=== PATIENT | female | born 1985 | race Caucasian/White ===

== ENCOUNTER → 2020-06-21 | Outpatient (CLI) | payer OTHER ==
--- NOTE | 2020-06-21 11:38 | Diagnostic Imaging Report ---
PROCEDURE: MRI lumbar spine. TECHNIQUE: Multiplanar, multisequence MRI of the lumbar spine was performed without contrast. INDICATION: Low back pain. COMPARISON: None. FINDINGS: There are five lumbar-type vertebral bodies for the purposes of this report. Normal alignment. Vertebral body heights preserved. At L5-S1, there are Modic type I degenerative endplate changes with disc space height loss. Small left foraminal disc protrusion contributes to moderate left neuroforaminal narrowing. No substantial lateral recess or spinal canal narrowing. The intervertebral discs are otherwise well-preserved. No other neural impingement. No abnormal signal in the conus which terminates at L1. Normal morphology of the cauda equina. The visualized pelvis and paravertebral soft tissues are unremarkable. IMPRESSION: Disc degeneration at L5-S1 including Modic type I degenerative endplate changes and a small left foraminal disc protrusion. This results in moderate left neuroforaminal narrowing. No other spondylotic change or neural impingement. Dictated by: Dictated on workstation # [id number]
== END ==
LOC: RAD 09:01
PROVIDERS: ATTEND Family Medicine
DX: M51.27 Other intervertebral disc displacement, lumbosacral region (principal); M51.37 Other intervertebral disc degeneration, lumbosacral region; M48.07 Spinal stenosis, lumbosacral region
CPT/HCPCS: 72148

== ENCOUNTER → 2020-08-20 | Outpatient (CLI) | payer OTHER ==
--- NOTE | 2020-08-20 16:21 | Diagnostic Imaging Report ---
INDICATION: Abdominal and bilateral flank pain. COMPARISON: None available. FINDINGS: Nonobstructive bowel gas pattern. There are no mineralized foci overlying the renal fossa or along the course of the expected ureters. A moderate amount of colonic stool is present. Calcified granulomas are present in the lung bases. Normal regional skeleton. IMPRESSION: 1. No radiographically apparent urinary tract calculi. 2. Moderate volume of colonic stool. 3. Old granulomatous infection. Dictated by: Dictated on workstation # [id number]
== END ==
LOC: RAD FS 10:55
PROVIDERS: ATTEND Nurse Practitioner Family
DX: K56.41 Fecal impaction (principal); R10.84 Generalized abdominal pain; L92.9 Granulomatous disorder of the skin and subcutaneous tissue, unspecified
CPT/HCPCS: 74019

== ENCOUNTER → 2021-12-27 | Outpatient (CLI) | payer OTHER | LOC: LABNPT 15:53 | PROVIDERS: ATTEND Registered Nurse Emergency | DX: J06.9 Acute upper respiratory infection, unspecified (principal) | CPT/HCPCS: 87070 ==

== ENCOUNTER → 2022-02-10 | Outpatient (CLI) | payer OTHER ==
[2022-02-10 08:18] LABS: POTASSIUM 3.6 MMOL/L (3.6-5.0)
[2022-02-10 08:19] LABS: ALBUMIN 4.4 GM/DL (3.2-4.5); BILIRUBIN,TOTAL 0.4 MG/DL (0.1-1.0); CALCIUM 9.3 MG/DL (8.5-10.1); CREATININE SERUM 0.75 MG/DL (0.60-1.30); TOTAL PROTEIN 6.7 GM/DL (6.4-8.2)
== END ==
LOC: LAB FS 07:37
PROVIDERS: ATTEND Registered Nurse Emergency
DX: Z00.00 Encounter for general adult medical examination without abnormal findings (principal); R81 Glycosuria; M48.061 Spinal stenosis, lumbar region without neurogenic claudication; N92.5 Other specified irregular menstruation
CPT/HCPCS: 36415; 80053; 80061

== ENCOUNTER 2022-03-27 05:31 | Outpatient (CLI) | payer OTHER ==
[~2022-03-27] VITALS: Ht 154.9 cm; Wt 47.0 kg
[2022-03-27] MEDS ORDERED: MELO15TA39 PO (15:31)
== END 2022-03-27 15:45 | disposition home or self-care (01) ==
LOC: PREOP 05:31
PROVIDERS: ATTEND Podiatrist Foot & Ankle Surgery
DX: Z01.818 Encounter for other preprocedural examination (principal)

== ENCOUNTER 2022-04-05 17:06 | Emergency (ER) | payer OTHER ==
[~2022-04-05] VITALS: Ht 170 cm; Wt 51.5 kg
[~2022-04-05 17:06] MED LIST changes: -PROM25TA14 PO
--- NOTE | 2022-04-05 17:28 | ED General ---
General Stated Complaint: THROAT AND EAR PAIN/LEG SWELLING/DISCOLORATION Source of Information: Patient, Old Records (lab ordered from clinic) History of Present Illness Date Seen by Provider: Apr 05, 2022 Time Seen by Provider: 17:27 Initial Comments 36-year-old female presenting with complaints of fever since Sunday, March 31, throat and ear pain, cough, leg swelling since yesterday, erythematous diffuse rash since yesterday. She had outpatient labs and chest x-ray ordered by Dr. Bowman's office. They had ordered a CT scan of her abdomen and pelvis to look for additional source of her symptoms. However this was not prior authorized with her insurance, [employer]. Since she was still having symptoms and concerned about the swelling and rash with fever and sore throat and ear pain she checked into the emergency department to be evaluated. She states that she was having trouble sleeping in the last few nights because of burning pain in her throat and ears. Sunday she had been seen in the clinic and they did a COVID and flu test which were both negative per patient. She was given a liter of normal saline for hydration on Sunday as well. Timing/Duration: 4-5 Days Severity: Moderate Associated Systoms: No Chest Pain; Cough; No Diaphoresis; Fever/Chills, Headaches, Loss of Appetite, Malaise; No Nausea/Vomiting; Rash; No Seizure; Shortness of Air; No Syncope; Weakness Allergies and Home Medications Allergies Coded Allergies: ciprofloxacin (Verified Allergy, Unknown, CRAMPS, DIARREHA, 03/27/22) sulfamethoxazole (Verified Allergy, Unknown, MOUTH SORES, 03/27/22) trimethoprim (Verified Allergy, Unknown, MOUTH SORES, 03/27/22) Patient Home Medication List Home Medication List Reviewed: Yes Meloxicam (Meloxicam) Unknown Strength Tablet, Unknown Dose PO, (Reported) Entered as Reported by: MANN EDWARDS on 03/27/22 153 Promethazine HCl (Promethazine Tablet) 25 Mg Tablet, 25 MG PO Q8H PRN for nausea/throat burning Prescribed by: ALYSSIA DURANT on 04/05/221937 Review of Systems Review of Systems Constitutional: see HPI EENTM: ear pain (Burning sensation in bilateral ears), nose congestion, throat pain (Burning sensation in her throat); No ear discharge Respiratory: see HPI, cough Cardiovascular: see HPI Gastrointestinal: No nausea, No vomiting Genitourinary: No dysuria Musculoskeletal: see HPI (Generalized muscle pain and body aches) Skin: rash (Diffuse erythematous maculopapular rash.) Psychiatric/Neurological: Headache Past Lsnijte-Guqzsh-Qsavac Hx Patient Social History Tobacco Use?: No Use of E-Cig and/or Vaping dev: No Substance use?: No Alcohol Use?: No Seasonal Allergies Seasonal Allergies: No Past Medical History Surgeries: Yes (WISDOM TEETH, LEFT INDEX FINGER, C/S X3 TUBAL LIG) Respiratory: No Cardiac: No 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 oz. kg; 19.58 BMI Method: General Appearance: Mild Distress, Thin Eyes: Right Eye Other (Lateral subconjunctival hemorrhage to the right eye) HEENT: PERRL/EOMI, TMs Normal (TMs clear bilaterally with effusion present. No significant erythema or dullness is appreciated), Pharynx Normal, Moist Mucous Membranes Neck: Full Range of Motion, Normal Inspection, Non Tender, Supple Respiratory: Chest Non Tender, Lungs Clear, Normal Breath Sounds, No Accessory Muscle Use, No Respiratory Distress Cardiovascular: Normal Peripheral Pulses, Tachycardia Gastrointestinal: Normal Bowel Sounds, No Pulsatile Mass, Non Tender (No tenderness palpation but reports it feels "full" or bloated in her abdomen when palpated), Soft; No Distended, No Guarding, No Rebound, No Tenderness Rectal: Deferred Extremity: Normal Capillary Refill, Normal Range of Motion, Pedal Edema (Bilateral 1+ nonpitting edema to above her knees.) Neurologic/Psychiatric: Alert, Oriented x3, 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 Norm as Tested Skin: Warm/Dry, Rash (Diffuse erythematous maculopapular rash) Focused Exam Lactate Level 04/05/22 17:20: Lactic Acid Level 1.37 Lactic Acid Level Laboratory Tests Test 04/05/22 17:20 Lactic Acid Level 1.37 MMOL/L (0.50-2.00) Progress/Results/Core Measures Suspected Sepsis SIRS Temperature: Pulse: Respiratory Rate: Laboratory Tests 04/05/22 17:20: White Blood Count 18.1H Blood Pressure / Mean: 04/05/22 17:20: Lactic Acid Level 1.37 Laboratory Tests 04/05/22 17:20: Platelet Count 159 Results/Orders Lab Results Laboratory Tests Test 04/05/22 17:20 Range/Units White Blood Count 18.1 H 4.3-11.0 10^3/uL Red Blood Count 3.95 3.80-5.11 10^6/uL Hemoglobin 12.0 11.5-16.0 g/dL Hematocrit 34 L 35-52 % Mean Corpuscular Volume 86 80-99 fL Mean Corpuscular Hemoglobin 30 25-34 pg Mean Corpuscular Hemoglobin Concent 35 32-36 g/dL Red Cell Distribution Width 13.2 10.0-14.5 % Platelet Count 159 130-400 10^3/uL Mean Platelet Volume 10.2 9.0-12.2 fL Immature Granulocyte % (Auto) 1 % Neutrophils (%) (Auto) 75 42-75 % Lymphocytes (%) (Auto) 14 12-44 % Monocytes (%) (Auto) 8 0-12 % Eosinophils (%) (Auto) 2 0-10 % Basophils (%) (Auto) 0 0-10 % Neutrophils # (Auto) 13.6 H 1.8-7.8 10^3/uL Lymphocytes # (Auto) 2.5 1.0-4.0 10^3/uL Monocytes # (Auto) 1.4 H 0.0-1.0 10^3/uL Eosinophils # (Auto) 0.3 0.0-0.3 10^3/uL Basophils # (Auto) 0.1 0.0-0.1 10^3/uL Immature Granulocyte # (Auto) 0.2 H 0.0-0.1 10^3/uL Neutrophils % (Manual) 62 % Lymphocytes % (Manual) 9 % Monocytes % (Manual) 13 % Eosinophils % (Manual) 5 % Basophils % (Manual) 0 % Band Neutrophils 5 % Atypical Lymphocytes 6 % Lactic Acid Level 1.37 0.50-2.00 MMOL/L Pro-B-Type Natriuretic Peptide 3723.0 H <125.0 PG/ML Monoscreen NEGATIVE NEGATIVE Influenza Type A (RT-PCR) Not Detected Not Detecte Influenza Type B (RT-PCR) Not Detected Not Detecte SARS-CoV-2 RNA (RT-PCR) Not Detected Not Detecte Group A Streptococcus Screen NEGATIVE NEGATIVE My Orders Orders - ALYSSIA DURANT MD Cbc With Automated Diff (04/05/22 17:21) Blood Culture (04/05/22 17:21) Lactic Acid Analyzer (04/05/22 17:21) Ed Iv/Invasive Line Start (04/05/22 17:21) Probnp Fs (04/05/22 17:21) Covid 19 Inhouse Test (04/05/22 17:21) Rapid Strep A Screen (04/05/22 17:21) Influenza A And B By Pcr (04/05/22 17:21) Isolation Central Supply Req (04/05/22 17:21) Ekg Tracing (04/05/22 17:51) Ns Iv 1000 Ml (Sodium Chloride 0.9%) (04/05/22 17:51) Dexamethasone Injection (Decadron Inje (04/05/22 17:51) Ceftriaxone 1 Gm Pre-Mix (Rocephin 1 Gm (04/05/22 17:51) Manual Differential (04/05/22 17:20) Monotest (04/05/22 18:49) Promethazine Tablet (Phenergan Tablet) (04/05/22 19:33) Vital Signs/I&O 04/05/22 04/05/22 17:50 19:50 Temp 37.1 37.1 Pulse 122 122 Resp 18 18 B/P (MAP) 102/61 (75) 102/61 Pulse Ox 99 99 O2 Delivery Room Air Room Air Capillary Refill : Progress Note #1: Progress Note Recheck labs to compare to what was done earlier today. Chest x-ray done earlier today did not show any acute cardiomegaly, effusion, infiltrate. Although she had reported a negative COVID and influenza from Sunday we will repeat the swab here. Add on a rapid strep swab since she was having burning sensation in her throat and laryngitis with losing her voice. Since she is tachycardic obtain electrocardiogram to look for any arrhythmia. Give normal saline 1 L IV fluid bolus for hydration since she was tachycardic and decreased oral intake. Labs from earlier today showed she had a white count of 19,000 with a bandemia of 27%. She did not have acute significant normality on her chemistry other than elevated CRP. Progress Note #2: Progress Note Her white blood cell count now is down to 18.1 thousand from 19 earlier today. Her bandemia has improved as well with dropping from 27% to 5%. Rapid strep was negative so a culture will be reflexed. Influenza and COVID were negative. Lactic Acid level was not elevated at 1.37. proBNP was elevated to 3, 723. [place] spot added on for her symptoms. Reviewed findings with patient and spouse. She was not septic and did not have an elevated lactic acid. Did look like she was having some strain on her heart with the elevated proBNP and peripheral edema. As she was not having pulmonary edema or effusions and was maintaining an oxygen saturation of 98 to 100% on room air she was not presenting with findings that would require hospital admission. She was given a gram of Rocephin IV for her elevated white blood cell counts in case there was a bacterial infection. Counseled patient on symptomatic care and waiting on cultures to come back. Check back with the clinic tomorrow or Sunday for recheck before going into the weekend. If the cultures come back positive she will get a call from the ER or through the clinic to receive additional treatment. Monospot came back after patient had been discharged and was negative. Departure Impression Primary Impression: Acute viral syndrome Additional Impressions: Viral exanthem, unspecified Rash and nonspecific skin eruption Upper respiratory infection with cough and congestion Leg swelling Disposition: 01 HOME, SELF-CARE Condition: Stable Departure-Patient Inst. Decision time for Depature: 19:35 Referrals: JILLIAN GUZMAN APRN (PCP) Primary Care Physician MANN BOWMAN MD (Family) Primary Care Physician Patient Instructions: Viral Exanthem ED, Upper Respiratory Infection ED, Skin Rash ED, Cough, Adult ED Add. Discharge Instructions: Stay well hydrated Try the Promethazine (Phenergan) for helping make your drowsy and it also has an antihistamine effect so may help with the burning in throat and ears. Use Humidifier at bedside to help with cough and congestion and throat burning. Check back with clinic or Sunday to see how you are doing and see if the cultures from tonight show anything more specific to treat from your blood or throat cultures. Try to keep legs elevated to help with swelling. Scripts Promethazine HCl (Promethazine Tablet) 25 Mg Tablet 25 MG PO Q8H PRN for nausea/throat burning for 3 Days, #9 TAB 0 Refills Prov: ALYSSIA DURANT MD 04/05/22 ALYSSIA DURANT MD Apr 05, 2022 17:28
[2022-04-05] MEDS ORDERED: NS IV 1000 ML 1,000 ML IV STA (17:51)
[2022-04-05] MEDS ORDERED: cefTRIAXone 1 GM PRE-MIX 50 ML IV STA (17:51)
[2022-04-05 17:54] LABS: BASOPHILS # (AUTO) 0.1 10^3/uL (0.0-0.1); BASOPHILS % (AUTO) 0 % (0-10); EOSINOPHILS # (AUTO) 0.3 10^3/uL (0.0-0.3); EOSINOPHILS % (AUTO) 2 % (0-10); HEMATOCRIT 34 % (35-52); LYMPHOCYTES # (AUTO) 2.5 10^3/uL (1.0-4.0); LYMPHOCYTES % (AUTO) 14 % (12-44); MEAN CORPUSCULAR HEMOGLOBIN 30 pg (25-34); MEAN CORPUSCULAR HGB CONC 35 g/dL (32-36); MEAN CORPUSCULAR VOLUME 86 fL (80-99); MEAN PLATELET VOLUME 10.2 fL (9.0-12.2); MONOCYTES # (AUTO) 1.4 10^3/uL (0.0-1.0); MONOCYTES % (AUTO) 8 % (0-12); NEUTROPHILS # (AUTO) 13.6 10^3/uL (1.8-7.8); NEUTROPHILS % (AUTO) 75 % (42-75); PLATELET COUNT 159 10^3/uL (130-400); WHITE BLOOD COUNT 18.1 10^3/uL (4.3-11.0)
[2022-04-05 18:40] LABS: ATYPICAL LYMPHOCYTES 6 %; BAND NEUTROPHILS 5 %; BASOPHILS % (MANUAL) 0 %; EOSINOPHILS % (MANUAL) 5 %; LYMPHOCYTES % (MANUAL) 9 %; MONOCYTES % (MANUAL) 13 %; NEUTROPHILS % (MANUAL) 62 %
[2022-04-05] MEDS ORDERED: PROMETHAZINE 25 MG (PHENERGAN) TAB PO STA (19:33)
[2022-04-05] MEDS ORDERED: PROM25TA14 PO (19:38)
[2022-04-05 19:50] VITALS: BP 102/61
== END 2022-04-05 19:49 | disposition home or self-care (01) ==
LOC: EDUNIT# 17:06 → ER FS 17:07
DX: J06.9 Acute upper respiratory infection, unspecified (principal); B09 Unspecified viral infection characterized by skin and mucous membrane lesions; Z20.822 Contact with and (suspected) exposure to COVID-19
CPT/HCPCS: 36415; 83605; 83880; 85007; 85027; 86308; 87040; 87430; 87636; 93005

== ENCOUNTER → 2022-04-05 | Outpatient (CLI) | payer OTHER ==
[~2022-04-05] MED LIST: MELO15TA39 PO; PROM25TA14 PO
[2022-04-05 14:05] LABS: BILIRUBIN,URINE NEGATIVE (NEGATIVE); CLARITY,URINE CLEAR; GLUCOSE, URINE (UA) NEGATIVE (NEGATIVE); KETONES,URINE NEGATIVE (NEGATIVE); LEUKOCYTE ESTERASE ,URINE NEGATIVE (NEGATIVE); NITRITE,URINE NEGATIVE (NEGATIVE); PH,URINE 6.5 (5-9); PROTEIN,URINE NEGATIVE (NEGATIVE)
[2022-04-05 14:17] LABS: BACTERIA,URINE NEGATIVE /HPF; COLOR,URINE YELLOW; SQUAMOUS EPITHELIAL CELL,UR 0-2 /HPF; WBC,URINE 0-2 /HPF
--- NOTE | 2022-04-05 16:06 | Diagnostic Imaging Report ---
Indication: Fever. Correlation made with prior KUB of the abdomen from August 20, 2020. FINDINGS: There are numerous scattered tiny round radiodensities throughout the lungs compatible with multiple calcified granulomas. There are no findings of alveolar consolidation to suggest pneumonia. There is no significant effusion. There are no findings of a pneumothorax. Heart size is normal. Mediastinal contours are appropriate. Pulmonary vascularity is normal. There is no acute or suspicious osseous abnormality. IMPRESSION: 1. No radiographic evidence of pneumonia, edema or an effusion. 2. Multiple tiny calcified granulomas throughout the lungs. The basilar granulomas were also evident on the prior KUB. Dictated by: Dictated on workstation # [id number]
== END ==
LOC: LAB FS 13:44
PROVIDERS: ATTEND Registered Nurse Emergency
DX: R50.9 Fever, unspecified (principal)
CPT/HCPCS: 71046; 81000

== ENCOUNTER → 2022-04-05 | Outpatient (CLI) | payer OTHER ==
[2022-04-05 11:35] LABS: BASOPHILS # (AUTO) 0.1 10^3/uL (0.0-0.1); BASOPHILS % (AUTO) 1 % (0-10); EOSINOPHILS # (AUTO) 0.4 10^3/uL (0.0-0.3); EOSINOPHILS % (AUTO) 2 % (0-10); HEMATOCRIT 34 % (35-52); HEMOGLOBIN 11.9 g/dL (11.5-16.0); LYMPHOCYTES # (AUTO) 2.1 10^3/uL (1.0-4.0); LYMPHOCYTES % (AUTO) 11 % (12-44); MEAN CORPUSCULAR HEMOGLOBIN 30 pg (25-34); MEAN CORPUSCULAR HGB CONC 35 g/dL (32-36); MEAN CORPUSCULAR VOLUME 88 fL (80-99); MEAN PLATELET VOLUME 9.7 fL (9.0-12.2); MONOCYTES # (AUTO) 1.3 10^3/uL (0.0-1.0); MONOCYTES % (AUTO) 7 % (0-12); NEUTROPHILS # (AUTO) 14.8 10^3/uL (1.8-7.8); NEUTROPHILS % (AUTO) 78 % (42-75); PLATELET COUNT 160 10^3/uL (130-400)
[2022-04-05 11:55] LABS: BILIRUBIN,TOTAL 0.9 MG/DL (0.1-1.0); CALCIUM 8.5 MG/DL (8.5-10.1); CREATININE SERUM 0.72 MG/DL (0.60-1.30); POTASSIUM 3.5 MMOL/L (3.6-5.0)
[2022-04-05 11:56] LABS: ALBUMIN 3.2 GM/DL (3.2-4.5)
[2022-04-05 12:46] LABS: BAND NEUTROPHILS 27 %; EOSINOPHILS % (MANUAL) 1 %; LYMPHOCYTES % (MANUAL) 8 %; MONOCYTES % (MANUAL) 5 %; NEUTROPHILS % (MANUAL) 55 %
[2022-04-05 12:47] LABS: ATYPICAL LYMPHOCYTES 1 %; HYPOCHROMASIA SLIGHT; PLATELET ESTIMATE NORMAL; REACTIVE LYMPHOCYTES 3 %; TOXIC GRANULATION/VACUOLAZATIO 1+
== END ==
LOC: LAB FS 11:12
PROVIDERS: ATTEND Registered Nurse Emergency
DX: M51.37 Other intervertebral disc degeneration, lumbosacral region (principal); M47.817 Spondylosis without myelopathy or radiculopathy, lumbosacral region; M48.07 Spinal stenosis, lumbosacral region; M51.27 Other intervertebral disc displacement, lumbosacral region; R23.3 Spontaneous ecchymoses; J06.9 Acute upper respiratory infection, unspecified; R60.0 Localized edema; J18.9 Pneumonia, unspecified organism
CPT/HCPCS: 36415; 80053; 85007; 85027; 86141

== ENCOUNTER → 2022-04-07 | Outpatient (CLI) | payer OTHER ==
[~2022-04-07] MED LIST changes: +PROM25TA14 PO
[2022-04-07 14:08] LABS: BASOPHILS # (AUTO) 0.1 10^3/uL (0.0-0.1); BASOPHILS % (AUTO) 0 % (0-10); EOSINOPHILS # (AUTO) 0.5 10^3/uL (0.0-0.3); EOSINOPHILS % (AUTO) 3 % (0-10); HEMATOCRIT 31 % (35-52); HEMOGLOBIN 10.8 g/dL (11.5-16.0); LYMPHOCYTES # (AUTO) 6.1 10^3/uL (1.0-4.0); LYMPHOCYTES % (AUTO) 41 % (12-44); MEAN CORPUSCULAR HEMOGLOBIN 31 pg (25-34); MEAN CORPUSCULAR HGB CONC 35 g/dL (32-36); MEAN CORPUSCULAR VOLUME 90 fL (80-99); MEAN PLATELET VOLUME 9.8 fL (9.0-12.2); MONOCYTES # (AUTO) 1.3 10^3/uL (0.0-1.0); MONOCYTES % (AUTO) 9 % (0-12); NEUTROPHILS # (AUTO) 6.5 10^3/uL (1.8-7.8); NEUTROPHILS % (AUTO) 44 % (42-75); PLATELET COUNT 165 10^3/uL (130-400); WHITE BLOOD COUNT 14.7 10^3/uL (4.3-11.0)
[2022-04-07 14:32] LABS: BILIRUBIN,TOTAL 0.5 MG/DL (0.1-1.0); CALCIUM 8.3 MG/DL (8.5-10.1); CREATININE SERUM 0.7 MG/DL (0.60-1.30); POTASSIUM 3.5 MMOL/L (3.6-5.0); TOTAL PROTEIN 5.7 GM/DL (6.4-8.2)
[2022-04-07 14:33] LABS: ALBUMIN 3.3 GM/DL (3.2-4.5)
== END ==
LOC: LAB FS 13:50
PROVIDERS: ATTEND Registered Nurse Emergency
DX: B34.9 Viral infection, unspecified (principal); R50.9 Fever, unspecified
CPT/HCPCS: 36415; 80053; 85025

== ENCOUNTER → 2022-04-10 | Outpatient (CLI) | payer OTHER | LOC: PREOP 05:31 | PROVIDERS: ATTEND Podiatrist Foot & Ankle Surgery | DX: Z01.818 Encounter for other preprocedural examination (principal); M20.11 Hallux valgus (acquired), right foot ==

== ENCOUNTER 2022-04-18 07:18 | Day surgery (SDC) | payer OTHER ==
[2022-04-18] VITALS (9 sets, daily range): BP systolic 93–126; BP diastolic 57–69
[2022-04-18] MEDS ORDERED: BUPIVACAINE 0.5% 30 ML (SENSORCAINE) VIAL ONE (07:57)
[2022-04-18] MEDS ORDERED: LIDOCAINE 1% INJ 20 ML VIAL ONE (07:57)
[2022-04-18] MEDS ORDERED: ceFAZolin INJECTION 1,000 MG in NS (IVPB) 50 ML IV ONE (08:15)
[2022-04-18] MEDS: LACTATED RINGERS 1,000 ML IV PRN ×2 (08:40→09:55)
[2022-04-18] MEDS ORDERED: fentaNYL INJ 100 MCG/2 ML AMP ONE (08:55)
[2022-04-18] MEDS ORDERED: proPOfol 200 MG/20 ML (DIPRIVAN) VIAL IV ONE (08:55)
[2022-04-18] MEDS ORDERED: LIDOCAINE PF 2% 5 ML (XYLOCAINE) VIAL ONE (08:55)
[2022-04-18] MEDS ORDERED: MIDAZOLAM 2 MG/2 ML (VERSED) VIAL ONE (08:55)
[2022-04-18] MEDS ORDERED: ONDANSETRON 4 MG/2 ML (SDV) Z0FRAN ONE (08:55)
--- NOTE | 2022-04-18 09:04 | Progress Note-Pre Operative ---
Pre-Operative Progress Note Date of Available H&P: Apr 18, 2022 Date H&P Reviewed: Apr 18, 2022 Time H&P Reviewed: 09:04 Pre-Operative Diagnosis: Hallux valgus right SARAH DALEY DPChuck Apr 18, 2022 09:04
[2022-04-18] MEDS ORDERED: SEVOFLURANE (ULTANE) 15 ML INHAL SOLN ONE (11:28)
--- NOTE | 2022-04-18 11:41 | Progress Note-Post Operative ---
Post-Operative Progess Note Surgeon (s)/Wind Energy Technician (s) Surgeon SARAH DALEY DPM Wind Energy Technician: none Pre-Operative Diagnosis Hallux valgus right Post-Operative Diagnosis same Procedure & Operative Findings Date of Procedure 04/18/22 Procedure Performed/Findings Lapidus - Harlan bunionectomy, right foot Anesthesia Type General Estimated Blood Loss Estimated blood loss (mL): Minimal Specimens/Packing Specimens Removed none SARAH DALEY DPM Apr 18, 2022 11:41
[2022-04-18] MEDS ORDERED: HYDROmorphone 2 MG/ML VIAL (DILAUDID) IV ONE (11:45)
[2022-04-18] MEDS ORDERED: ONDANSETRON 4 MG/2 ML (SDV) Z0FRAN IVP PRN ×2 (11:45→12:15)
[2022-04-18] MEDS ORDERED: morphine INJ 10 MG/ML 1ML (SYR OR VIAL) IVP ONE ×2 (11:45→12:15)
[2022-04-18] MEDS ORDERED: LACTATED RINGERS 1,000 ML IV SCH (11:45)
[2022-04-18] MEDS ORDERED: HYDROcodone/APAP 5 MG/325 MG (LORTAB) TAB PO PRN (11:45)
[2022-04-18] MEDS ORDERED: CEPH500C PO (11:47)
[2022-04-18] MEDS ORDERED: ACHD5005 PO (11:47)
[2022-04-18] MEDS ORDERED: MEPERIDINE (DEMEROL) INJ 50 MG/ML IVP ONE (12:15)
[2022-04-18] MEDS ORDERED: HYDROcodone/APAP 5 MG/325 MG (LORTAB) TAB ONE (13:09)
--- NOTE | 2022-04-18 13:35 | Physical Therapy Ortho Eval ---
PT Orthopedic Evaluation Type of Surgery Hallux valgus right Prior Level of Function Current Living Status: Spouse Locomotion (Upon Admit): Independent Established Durable Medical Eq: Crutches (issued) Subjective Entry Into Home: Stairs With Railing Steps Into Home: 2 Motor Control Motor Control: Motor Control WNL ROM ROM: WFL, except focal deficit Strength Strength: WFL Transfer SCALE: Activities may be completed with or without assistive devices. 7-Nsgdkdmdcv-nuqhfss completes the activity by him/herself with no assistance from a helper. 5-Set-up or Clean-up Assistance-helper sets up or cleans up; patient completes activity. [place] assists only prior to or following the activity. 4-Supervision or Touching Assistance-helper provides verbal cues and/or touching/steadying and/or contact guard assistance as patient completes act ivity. Assistance may be provided throughout the activity or intermittently. 3-Partial/Moderate Assistance-helper does LESS THAN HALF the effort. [place] lifts, holds or supports trunk or limbs, but provides less than half the effort. 2-Substantial/Maximal Assistance-helper does MORE THAN HALF the effort. [place] lifts or holds trunk or limbs and provides more than half the effort. 9-Nhwxincxw-yuvnao does ALL the effort. Patient does none of the effort to complete the activity. Or, the assistance of 2 or more helpers is required for the patient to complete the activity. If activity was not attempted, code reason: 7-Patient Refused. 9-Not Applicable-not attempted and the patient did not perform the activity before the current illness, exacerbation or injury. 10-Not Attempted due to Environmental Limitations-(lack of equipment, weather restraints, etc.). 88-Not Attempted due to Medical Conditions or Safety Concerns. Transfers (B, C, W/C) (QC): 6 Gait Gait Assistive Device: Crutches Right Lower Extremity: Right Weight Bearing Status RLE: Non Weight Bearing Left Lower Extremity: Left Weight Bearing Status LLE: Full Weight Bearing Gait (QC): 5 Distance: 50' x 1/150' x 1 Stairs #of Steps: 2 Walking Assistive Device: Crutches able to safely maintain NWB right foot with crutches Treatment Rendered Treatment: Gait Train, Step Train Assessment/Goals Goal Time Frame: 1 Visit Safe Ambulation: Yes Plan Treatment Plan: Discharge, Education, Gait, Safety PT/Family Agrees to Plan: Yes Time Time In: 1310 Time Out: 1325 Total Billed Treatment Time: 15 Billed Treatment Time 1 visit EVMod 15 min DARRICK RICCI PT Apr 18, 2022 13:35
--- NOTE | 2022-04-18 14:16 | Diagnostic Imaging Report ---
INDICATION: Postoperative evaluation. COMPARISON: None available. TECHNIQUE: Two radiographs of the right foot dated 04/18/2022. FINDINGS: Postsurgical changes of an arthrodesis associated with the first TMT joint with osteotomy of the first digit proximal phalanx. No evidence of hardware complication. No acute fracture or dislocation. No destructive osseous process. No suspicious radiopaque foreign body. IMPRESSION: Postsurgical changes involving the first ray without evidence of hardware complication or acute osseous abnormality. Dictated by: Dictated on workstation # [id number]
--- NOTE | 2022-04-18 14:42 | Anesthesia-General Post-Op ---
General Patient Condition Mental Status/LOC: Same as Preop Cardiovascular: Satisfactory Nausea/Vomiting: Absent Respiratory: Satisfactory Pain: Controlled Complications: Absent Post Op Complications Complications None Follow Up Care/Instructions Patient Instructions None needed. Anesthesia/Patient Condition Patient Condition Patient is doing well, no complaints, stable vital signs, no apparent adverse anesthesia problems. No complications reported per nursing. DISHA WHITTINGTON CRNA Apr 18, 2022 14:42
--- NOTE | 2022-04-18 21:25 | OPERATIVE REPORT ---
DATE OF SERVICE: 04/18/2022 SURGEON: Joyce Daley DPM PREOPERATIVE DIAGNOSIS: Hallux abductovalgus metatarsal primus varus, right. POSTOPERATIVE DIAGNOSIS: Hallux abductovalgus metatarsal primus varus, right. PROCEDURE: Modified Lapidus Harlan bunionectomy, right foot. WOUND CLASS: Clean. ANESTHESIA: General. HEMOSTASIS: Pneumatic thigh tourniquet at 250 mmHg. INDICATIONS: This 36-year-old female presents complaining of a painful right bunion. The foot has been treated with conservative care without satisfactory results. The patient is agreeable to surgical intervention after risks and complications were discussed at length. No guarantees were extended to the patient and she is willing to proceed. DESCRIPTION OF PROCEDURE: The patient was brought back to the operating table and placed in a secure supine position. Appropriate time-out was performed. General anesthetic was induced. A thigh tourniquet was placed on the right lower extremity over several layers of padding. The right foot was then prepped and draped in the normal sterile manner. A 10 mL 1:1 mixture of 1% Xylocaine and 0.5% Marcaine was also injected in a Kee block, right foot. The right foot was then elevated and allowed to exsanguinate after which the tourniquet was inflated to 250 mmHg. Attention was then directed to the dorsal aspect of the first metatarsal cuneiform joint where a dorsal medial incision was created of approximately 4 cm in length. The incision was deepened down through the subcutaneous tissue with great care to identify and retract all vital neurovascular structures. Only necessary blood vessels were cauterized as encountered. The incision was deepened down to capsular tissue just medial to the extensor hallucis longus tendon. The capsular tissue was incised exposing the first metatarsal cuneiform joint. Next, utilizing a Prospect 28 cut guide of approximately 14 degrees, the base of the first metatarsal and distal aspect of the medial cuneiform were resected. Next, fenestration was performed to the base of the first metatarsal and medial cuneiform distal aspect. This was in preparation for the arthrodesis procedure. Next, a temporary K-wire was driven from plantar distal to proximal dorsal, holding the arthrodesis site in place. C-arm indicated good reduction of the first intermetatarsal angle. Next, utilizing Prospect 28 Lapidus plate, there is fixation provided for the right first metatarsophalangeal joint utilizing the 4-hole standard plate. The interfragmented screw from dorsal distal to plantar proximal was a 4.0 screw headed of 28 mm of length. The two proximal locking screws were 3.5 of 18 and 16 mm of length. The distal screws were all locking of all 3.5 in diameter and were 16, 14 and 10 mm in length. Excellent fixation and approximation was appreciated at this time. The wound was flushed with copious amount of normal saline and closure was performed in layers. Deep closure was performed with 3-0 Vicryl, superficial with 4-0 Vicryl, skin closed with 4-0 Prolene in a horizontal mattress type stitch. Attention was then directed to the dorsal aspect of the right first metatarsophalangeal joint where a lateral deviation continued to be present to the hallux. A dorsal incision of approximately 3.5 cm was provided access down to the subcutaneous tissue where dissection was carried out to the first metatarsophalangeal joint with great care to retract all vital neurovascular structures. The dorsal medial eminence of the first metatarsal head was resected utilizing a power sagittal saw after a capsulorrhaphy was performed. The dorsal prominence of the first metatarsal head was also contoured and smoothed with a power bur. Next, a lateral release was performed to the first metatarsophalangeal joint, releasing the conjoined tendon of the adductor hallucis as well as a lateral capsulorrhaphy and release of the fibular sesamoidal ligament. There still remained some lateral deviation of the hallux and an Harlan type osteotomy was then performed with a power sagittal saw to the mid diaphysis of the right hallux proximal phalanx. The base was medial and lateral cortices held intact. When the wedge of bone was resected and closed, good reduction of the angulation was appreciated. Two packing machine pilot can router holes were created to the dorsal medial aspect of the osteotomy after which 28-gauge monofilament wire was passed through the osteotomy packing machine pilot can router holes securing the osteotomy in a closed position. The patient had the entire incision irrigated and after which closure was performed in layers. Deep closure was performed with 3-0 Vicryl and superficial with 4-0 Vicryl, skin closed with 4-0 Prolene in a horizontal mattress type stitch. Postoperative injection consisted of 10 mg of dexamethasone into the first intermetatarsal space. Next was 10 mL of 1:1 mixture of 1% Xylocaine and 0.5% Marcaine injected in a Kee block. Dressing consisted of Betadine-soaked Adaptic, sterile 4 x 4's, sterile Kerlix, all secured with a Coban wrap. The patient tolerated the anesthesia and procedure well and was transported from the operating room to the recovery area with vital signs stable and vascular status intact to all digits of the right foot. She is to follow up in my office in 10 days period of time or sooner if necessary. She is to be nonweightbearing during that time. Job ID: [id number] DocumentID: [id number] Dictated Date: 04/18/2022 11:56:49 Microbial Specialist Date: 04/18/2022 21:22:00 Dictated By: JOYCE DALEY DPM
== END 2022-04-18 13:25 | disposition home or self-care (01) ==
LOC: SDC 07:18
PROVIDERS: ATTEND Podiatrist Foot & Ankle Surgery
DX: M20.11 Hallux valgus (acquired), right foot (principal); G89.18 Other acute postprocedural pain
CPT/HCPCS: 73620; 84703; 87081